=== PATIENT | male | born 1940 | race Caucasian/White ===

== ENCOUNTER 2020-03-09 16:20 | Emergency (ER) | payer MEDICARE, SELFPAY ==
[2020-03-09 16:35] VITALS: BP 163/103; PULSE 74; RESP 16; TEMP 36.4; O2SAT 97
--- NOTE | 2020-03-09 16:58 | ED.GENADULT ---
HPI - General Adult General Chief complaint: Abdominal Pain Stated complaint: bowel issues Time Seen by Provider: 03/09/20 16:28 Source: patient Mode of arrival: ambulatory Limitations: no limitations History of Present Illness HPI narrative: 79-year-old man comes in today complaining of no bowel movement for the last 5 days. Patient states he feels like he has to go but he thinks it is too big to pass. He denies pain, nausea, vomiting, diarrhea, dysuria, hematuria or bright red blood per rectum. He has no melena or history of GI bleeding. He states that he took Mag citrate earlier today but has had no result. He states he sometimes go 2-3l days without a BM. Onset (ago): day(s) (5) Relieving factors: none Exacerbating factors: none Associated symptoms: denies other symptoms Treatments prior to arrival: other ( Mag citrate.) Related Data Home Medications Medication Instructions Recorded Confirmed allopurinol 300 mg PO DAILY 03/09/20 03/09/20 benazepril 20 mg PO DAILY 03/09/20 03/09/20 lovastatin 40 mg PO DAILY 03/09/20 03/09/20 multivit with min-folic acid 1 tablet PO BID 03/09/20 03/09/20 [Adult One Daily Multivitamin] omega-3 fatty acids-vitamin E 1 cap PO BID 03/09/20 03/09/20 [Fish Oil] triamterene-hydrochlorothiazid 1 tablet PO DAILY 03/09/20 03/09/20 Allergies Allergy/AdvReac Type Severity Reaction Status Date / Time No Known Allergies Allergy Verified 03/09/20 16:47 Review of Systems Constitutional: Constitutional: Denies chills, Denies fever(s) and Denies weakness Eyes: Eyes: Denies change in vision and Denies photophobia ENT: Denies dysphagia, Denies nasal congestion and Denies sore throat Cardiovascular: Cardiovascular: Denies chest pain and Denies radiating jaw, neck or arm pain Respiratory: Respiratory: Denies cough and Denies dyspnea Gastrointestinal: Gastrointestinal: Denies abdominal pain, Reports bloating, Reports constipation, Denies diarrhea, Denies nausea and Denies vomiting Genitourinary: Genitourinary: Denies hematuria, Denies dysuria and Denies urinary frequency Musculoskeletal: Musculoskeletal: Denies back pain, Denies arthralgias and Denies joint swelling Integumentary/Breasts: Skin/Breast: Denies pruritus, Denies erythema and Denies rash Neurologic: Denies vertigo, Denies dizziness and Denies syncope Hematologic/Lymphatic: Hematologic/Lymphatic: Denies easy bleeding and Denies easy bruising Allergic/Immunologic: Allergic/Immunologic: Denies lip swelling and Denies throat swelling PMFSH Past Medical History Medical History (Updated 03/09/20 @ 17:44 by Shelton Raymond MD) Back pain Dyslipidemia Gout Hypertension Social History Social History Smoking status: Never smoker Alcohol intake: never Substance use: never Living arrangements: with family Occupation/Education: retired Exam Const: General: healthy appearing and alert Nutritional Appearance: well nourished Orientation/consciousness: patient oriented x3 Other: anxious HENMT: Mouth: Yes moist mucous membranes Throat: posterior oropharynx normal Eyes: Conjunctivae: conjunctivae normal Pupils: Equal, round and reactive pupils present EOM: EOMs intact bilaterally Resp: Effort & Inspection: normal respiratory effort Auscultation: clear to auscultation bilaterally, no rales, no rhonchi and no wheezes Cardio: Rate: regular rate Rhythm: regular rhythm GI: GI Palp: Yes Soft to palpation, No Tenderness to palpation present (GI) and Yes Palpable mass present ( malleable, mobile mass and the right lower quadrant.) Auscultation: normal bowel sounds Rectal Exam: normal sphincter tone Other: Copious soft stool in the vault. No masses, tenderness, melena, or blood evident Skin: General skin exam: normal color Rashes: no rashes Neuro: General: patient oriented x3, moves all extremities, no focal motor deficits and CN's II-XI intact
[2020-03-09 17:06] LABS: Occult Blood Negative (Negative)
[2020-03-09 17:13] LABS: Add Urine Microscopic? YES; Appearance Urine Clear (Clear); Bilirubin Urine Negative (Negative); Blood Urine Negative (Negative); Color Urine Yellow (Yellow); Glucose Urine UA Negative (Negative); Ketones Urine Negative (Negative); Leukocyte Esterase Ur Trace (Negative); Nitrate Urine Negative (Negative); Protein Urine 1+ (Negative); Specific Grav Ur 1.025 (1.010-1.020); Urobilinogen Urine 0.2 mg/dL (0.2-1.0)
--- NOTE | 2020-03-09 17:13 | PC.NURSE ---
RECTAL EXAM PERFORMED BY ERP - PT GOES TO BATHROOM AND HAS GREAT RELIEF WITH BOWEL MOVEMENT
[2020-03-09 17:17] LABS: Bacteria Urine Trace /hpf; RBC Urine 0-2 /hpf (0-2)
[2020-03-09 17:55] VITALS: BP 157/81
== END 2020-03-09 17:55 | disposition home or self-care (01) ==
PROVIDERS: Emergency Provider Emergency Medicine; PCP Family Medicine
DX: K59.00 Constipation, unspecified (principal); E78.5 Hyperlipidemia, unspecified; I10 Essential (primary) hypertension; Z79.899 Other long term (current) drug therapy
CPT/HCPCS: 81001; 87077; 87086; 87088; 99283